=== PATIENT | female | born 1930 | race Caucasian/White ===

== ENCOUNTER 2018-05-01 22:59 | Observation (INO) | payer OTHER, BC ==
--- NOTE | 2018-05-01 23:27 | PDOC ---
History of Present Illness - General History Source: Patient Exam Limitations: No Limitations - History of Present Illness Initial Comments: 05/01/18 23:34 The patient is a 87 year old female, with a significant PMH of breast and colon cancer, who presents to the emergency department complaining of dysphagia that began an hour ago. The patient states she was able to eat dinner 8 PM and soon after dinner she noted she was not able to swallow her saliva. After this, she continuously started to expectorate her saliva as well clear foamy phlegm. She states that she had similar episodes in the past and has resolved on its own. The patient denies needing endoscopy removal of food bolus. She states that previous upper endoscopy has been normal. Denies chest pain, shortness of breath, headache and dizziness. Denies fever, chills, nausea, sore throat, vomit, diarrhea and constipation. Allergies: amoxicillin trihydrate, potassium clavulanate Past surgical history: None reported Social history: None reported PCP: None reported <hCristen Fyre - Last Filed: 05/01/18 23:57> <Loretta Patel - Last Filed: 05/04/18 04:07> - General Chief Complaint: Dysphagia Stated Complaint: HICCUPS, DIFFICULTY SWALLOWING AFTER EATING Time Seen by Provider: 05/01/18 23:17 Past History <Christen Frye - Last Filed: 05/01/18 23:57> - Past Medical History Cancer: Yes (BREAST,COLON) COPD: No - Immunization History Immunization Up to Date: Yes - Suicide/Smoking/Psychosocial Hx Smoking History: Never smoked Have you smoked in the past 12 months: No Number of Cigarettes Smoked Daily: 0 Information on smoking cessation initiated: No Hx Alcohol Use: No Drug/Substance Use Hx: No Substance Use Type: None <Loretta Patel - Last Filed: 05/04/18 04:07> - Past Medical History Allergies/Adverse Reactions: Allergies Allergy/AdvReac Type Severity Reaction Status Date / Time amoxicillin trihydrate Allergy Mild Verified 05/01/18 23:03 [From Augmentin] potassium clavulanate Allergy Mild Verified 05/01/18 23:03 [From Augmentin] Home Medications: Ambulatory Orders Pantoprazole Suspension [Protonix Packets For Oral Suspension -] 40 mg PO DAILY #30 packet 05/02/18 Review of Systems - Review of Systems Able to Perform ROS?: Yes Comments:: 05/01/18 23:35 GENERAL/CONSTITUTIONAL: No fever or chills. No weakness. HEAD, EYES, EARS, NOSE AND THROAT: No change in vision. No ear pain or discharge. No sore throat. CARDIOVASCULAR: No chest pain or shortness of breath. RESPIRATORY: +cough. No wheezing, or hemoptysis. GASTROINTESTINAL: No nausea, vomiting, diarrhea or constipation. GENITOURINARY: No dysuria, frequency, or change in urination. MUSCULOSKELETAL: No joint or muscle swelling or pain. No neck or back pain. SKIN: No rash NEUROLOGIC: No headache, vertigo, loss of consciousness, or change in strength/ sensation. ENDOCRINE: No increased thirst. No abnormal weight change. HEMATOLOGIC/LYMPHATIC: No anemia, easy bleeding, or history of blood clots. ALLERGIC/IMMUNOLOGIC: No hives or skin allergy. <Christen Frye - Bishop Filed: 05/01/18 23:57> *Physical Exam - Vital Signs Last Vital Signs Temp Pulse Resp BP Pulse Ox 112 H 20 130/82 96 05/01/18 23:15 05/01/18 23:15 05/01/18 23:15 05/01/18 23:15 - Physical Exam Comments: 05/01/18 23:36 GENERAL: Awake, alert, and fully oriented, in no acute distress HEAD: No signs of trauma EYES: PERRLA, EOMI, sclera anicteric, conjunctiva clear ENT: +Expectorant intermittent bolus of saliva. Auricles normal inspection, hearing grossly normal, nares patent. Moist mucosa NECK: Normal ROM, supple, no lymphadenopathy, JVD, or masses LUNGS: Moving air well. Able to speak full sentence. Breath sounds equal, clear to auscultation bilaterally. No wheezes, and no crackles HEART: Regular rate and rhythm, normal S1 and S2, no murmurs, rubs or gallops ABDOMEN: Soft, nontender, normoactive bowel sounds. No guarding, no rebound. No masses EXTREMITIES: Normal range of motion, no edema. No clubbing or cyanosis. No cords, erythema, or tenderness NEUROLOGICAL: Cranial nerves II through XII grossly intact. Normal speech, normal gait SKIN: Warm, Dry, normal turgor, no rashes or lesions noted. <Christen Frye - Last Filed: 05/01/18 23:57> - Vital Signs Last Vital Signs Temp Pulse Resp BP Pulse Ox 112 H 20 130/82 96 05/01/18 23:15 05/01/18 23:15 05/01/18 23:15 05/01/18 23:15 <Loretta Patel - Last Filed: 05/04/18 04:07> Moderate Sedation - Procedure Monitoring Vital Signs: Procedure Monitoring Vital Signs Temperature Pulse Rate 112 H 05/01/18 23:15 Respiratory Rate 20 05/01/18 23:15 Blood Pressure 130/82 05/01/18 23:15 O2 Sat by Pulse Oximetry (%) 96 05/01/18 23:15 <Christen Frye - Last Filed: 05/01/18 23:57> - Procedure Monitoring Vital Signs: Procedure Monitoring Vital Signs Temperature Pulse Rate 112 H 05/01/18 23:15 Respiratory Rate 20 05/01/18 23:15 Blood Pressure 130/82 05/01/18 23:15 O2 Sat by Pulse Oximetry (%) 96 05/01/18 23:15 <Loretta Patel - Last Filed: 05/04/18 04:07> ED Treatment Course - LABORATORY CBC & Chemistry Diagram: 05/02/18 07:15 05/02/18 07:15 <Loretta Patel - Last Filed: 05/04/18 04:07> Medical Decision Making - Medical Decision Making Documentation has been prepared under my direction and personally reviewed by me in its entirety. I attest that this documented accurately reflects all work, treatment, procedures and medical decision making performed by me. As noted above, this 87-year-old woman with a history of intermittent difficulty swallowing but no clear history of need for removal of food impaction presents with inability to swallow her saliva after eating a dinner of chicken and pasta at approximately 8 PM tonight. She also complained of discomfort in the right lower anterior neck area and sensation of a "bubble" in this area. The patient also was intermittently coughing clear phlegm. Remainder of his exam as noted. Patient received glucagon [address] Constantino was contacted and case was discussed with him after patient had no significant relief within 45 minutes after glucagon administration. He was contacted because OR team is not available overnight here and patient would need to be transferred to [facility] for urgent endoscopy. Meanwhile, the patient had total relief in her symptoms. CBC/chemistry profile/INR sent. Other than evidence of prerenal azotemia with BUN of 28 and creatinine of 0.7, labs were essentially normal with no evidence of electrolyte abnormality. CBC was within normal limits. INR is normal at 0.96. An oral challenge of a small amount of water was given to the patient. She then had a brief recurrence of throat/neck discomfort, inability to swallow and "bubble" sensation. Patient briefly needed to expectorate all swallowed material. After approximately 10 minutes, the patient again had resolution of symptoms Since patient has had apparent intermittent upper esophageal obstruction of unclear etiology, she requires admission to be NPO for possible endoscopy in the morning. Dr. Vaz contacted : He agrees to plan Portable chest x-ray reveals severe thoraco lumbar scoliosis (as seen in previous chest x-ray dated 01/16/11) without evidence of pulmonary infiltrate/ effusions/masses 12-lead electrocardiogram is performed: Sinus rhythm with occasional PACs at [address] or T-wave abnormalities. Intervals are normal Case discussed with Claudia Logan, [facility] hospitalist service. Patient will be admitted under observation status, Dr. Candelaria <Loretta Patel - Last Filed: 05/04/18 04:07> *DC/Admit/Observation/Transfer - Attestations Scribe Attestion: 05/01/18 23:37 Documentation prepared by Christen Frye, acting as resident medical officer for Loretta Patel MD. <Christen Frye - Last Filed: 05/01/18 23:57> - Discharge Dispostion Decision to Admit order: Yes <Loretta Patel - Last Filed: 05/04/18 04:07> Diagnosis at time of Disposition: Esophageal dysfunction - Discharge Dispostion Disposition: HOME Condition at time of disposition: Improved
[2018-05-01] MEDS ORDERED: GLUCAGON 1 MG KIT ONE (23:29)
[2018-05-01] MEDS ORDERED: GlUCAGON HUMAN RECOMBINANT 1 MG/VIAL IVPUSH ONE ×2 (23:29)
[2018-05-02 00:55] LABS: BASO % 0.9 % (0-2.0); EOS % 3.1 % (0-4.5); HEMATOCRIT 34.4 % (32.4-45.2); HEMOGLOBIN 11.9 GM/dL (10.7-15.3); INR 0.96 (0.83-1.09); LYMPH % 7.9 % (8-40); MCH 32.4 pg (25.7-33.7); MCHC 34.5 g/dl (32.0-36.0); MEAN CELL VOLUME 93.7 fl (80-96); MONO % 15.1 % (3.8-10.2); PLATELET COUNT 412 K/MM3 (134-434); PROTHROMBIN TIME (PATIENT) 11.3 SEC (9.7-13.0); RBC 3.67 M/mm3 (3.60-5.2); RDW 13.3 % (11.6-15.6); WHITE BLOOD COUNT 5.2 K/mm3 (4.0-10.0)
[2018-05-02 00:56] LABS: ANION GAP 5 MMOL/L (8-16); BLOOD UREA NITROGEN 28 mg/dL (7-18); CALCIUM 8.9 mg/dL (8.5-10.1); CHLORIDE 96 mmol/L (98-107); CO2 33 mmol/L (21-32); CREATININE 0.7 mg/dL (0.55-1.3); GLUCOSE,RANDOM 103 mg/dL (74-106); POTASSIUM 4.3 mmol/L (3.5-5.1); SODIUM 134 mmol/L (136-145)
[2018-05-02 00:57] LABS: ALBUMIN 3.3 g/dl (3.4-5.0); ALK PHOS 74 U/L (45-117); BILIRUBIN,TOTAL 0.4 mg/dL (0.2-1); SGOT/AST 17 U/L (15-37); SGPT/ALT 20 U/L (13-61)
[2018-05-02] MEDS ORDERED: DEXTROSE 5%-0.45% SALINE 1,000 ML IV SCH (04:00)
[2018-05-02 05:53] VITALS: BMI 16.4
[2018-05-02 08:16] LABS: EOS % 0.1 % (0-4.5); HEMATOCRIT 32.3 % (32.4-45.2); HEMOGLOBIN 10.4 GM/dl (10.7-15.3); LYMPH % 2.2 % (8-40); MCH 30.3 pg (25.7-33.7); MCHC 32.3 g/dl (32.0-36.0); MEAN CELL VOLUME 93.7 fl (80-96); MEAN PLT VOLUME 8.1 fl (7.5-11.1); NEUT % 89.7 % (42.8-82.8); PLATELET COUNT 384 K/MM3 (134-434); RBC 3.45 M/mm3 (3.60-5.2); RDW 12.6 % (11.6-15.6); WHITE BLOOD COUNT 10.6 K/mm3 (4.0-10.8)
[2018-05-02 08:28] LABS: ANION GAP 12 MMOL/L (8-16); BLOOD UREA NITROGEN 25 mg/dl (7-18); CALCIUM 8.8 mg/dl (8.5-10); CHLORIDE 96 mmol/L (98-107); CO2 26 mmol/L (21-32); CREATININE 0.6 mg/dl (0.55-1.3); POTASSIUM 4.4 mmol/L (3.5-5.1); SODIUM 134 mmol/L (136-145)
[2018-05-02 08:53] LABS: GLUCOSE,RANDOM 125 mg/dl (74-106)
--- NOTE | 2018-05-02 09:54 | EKG ---
Test Reason : Blood Pressure : / mmHG Vent. Rate : 097 BPM Atrial Rate : 097 BPM P-R Int : 136 ms QRS Dur : 076 ms QT Int : 380 ms P-R-T Axes : 081 071 067 degrees QTc Int : 482 ms SINUS RHYTHM WITH PREMATURE ATRIAL COMPLEXES POSSIBLE LEFT ATRIAL ENLARGEMENT BORDERLINE ECG NO PREVIOUS ECGS AVAILABLE Confirmed by BRAYDEN FARAH, JANETT ([id number]) on 05/02/2018 9:53:53 AM Referred By: DR HERNANDEZ Confirmed By:JANETT OWEN MD
--- NOTE | 2018-05-02 10:52 | PN ---
Progress Note (short form) - Note Progress Note: Patient seen and consult dictated. Upper endoscopy performed with report in chart. Findings c/w esophagitis and distal esophageal stricture (peptic). Biopsies taken. No remaining food impaction noted. Rec: soft diet PPI daily discharge home outpatient followup with repeat EGD ?dilatation in 3 weeks
--- NOTE | 2018-05-02 11:50 | HP ---
CHIEF COMPLAINT: Difficulty swallowing PCP: [facility] HISTORY OF PRESENT ILLNESS: The patient is a 87 year old female, with a significant PMH of breast and colon cancer, who presents to the emergency department complaining of dysphagia that began an hour ago. The patient states she ate a dinner of chicken and pasta, and soon thereafter felt discomfort in her throat, like a "bubble," and she was unable to swallow her saliva. Verdugo then started to continuously expectorate her saliva as well clear foamy phlegm. She states that she had similar episodes in the past which resolved on its own. Previous upper endoscopy was normal. Denies chest pain, shortness of breath; denies nausea, vomiting. ER course was notable for: (1) Glucagon IV 1mg x 1 Recent Travel: No PAST MEDICAL HISTORY: Breast cancer Colon cancer PAST SURGICAL HISTORY: Mastectomy Colon resection Social History: Smoking: no Alcohol: no Drugs: no Family History: Allergies amoxicillin trihydrate [From Augmentin] Allergy (Mild, Verified 05/01/18 23:03) potassium clavulanate [From Augmentin] Allergy (Mild, Verified 05/01/18 23:03) HOME MEDICATIONS: Home Medications Medication Instructions Recorded Aspirin 81 mg PO DAILY 02/08/13 REVIEW OF SYSTEMS CONSTITUTIONAL: Absent: fever, chills, diaphoresis, generalized weakness, malaise, loss of appetite, weight change HEENT: Absent: rhinorrhea, nasal congestion, throat pain, throat swelling, difficulty swallowing, mouth swelling, ear pain, eye pain, visual changes CARDIOVASCULAR: Absent: chest pain, syncope, palpitations, irregular heart rate, lightheadedness , peripheral edema RESPIRATORY: Absent: cough, shortness of breath, dyspnea with exertion, orthopnea, wheezing, stridor, hemoptysis GASTROINTESTINAL: +neck discomfort, difficulty swallowing, expectorating copious saliva Absent: abdominal pain, abdominal distension, nausea, vomiting, diarrhea, constipation, melena, hematochezia GENITOURINARY: Absent: dysuria, frequency, urgency, hesitancy, hematuria, flank pain, genital pain MUSCULOSKELETAL: Absent: myalgia, arthralgia, joint swelling, back pain, neck pain SKIN: Absent: rash, itching, pallor HEMATOLOGIC/IMMUNOLOGIC: Absent: easy bleeding, easy bruising, lymphadenopathy, frequent infections ENDOCRINE: Absent: unexplained weight gain, unexplained weight loss, heat intolerance, cold intolerance NEUROLOGIC: Absent: headache, focal weakness or paresthesias, dizziness, unsteady gait, seizure, mental status changes, bladder or bowel incontinence PSYCHIATRIC: Absent: anxiety, depression, suicidal or homicidal ideation, hallucinations. PHYSICAL EXAMINATION Vital Signs - 24 hr 05/01/18 05/02/18 05/02/18 23:15 02:30 03:39 Temperature Pulse Rate 112 H Pulse Rate [ 100 H Left] Respiratory 20 20 20 Rate Blood Pressure 130/82 Blood Pressure 118/57 L [Left] O2 Sat by Pulse 96 96 96 Oximetry (%) 05/02/18 05/02/18 05/02/18 03:57 06:01 08:36 Temperature 97.6 F Pulse Rate 103 H Pulse Rate [ Left] Respiratory 20 20 Rate Blood Pressure 115/64 Blood Pressure [Left] O2 Sat by Pulse 96 91 L 92 L Oximetry (%) GENERAL: Awake, alert, and fully oriented, in no acute distress. HEAD: Normal with no signs of trauma. EYES: Pupils equal, round and reactive to light, extraocular movements intact, sclera anicteric, conjunctiva clear. No lid lag. EARS, NOSE, THROAT: Ears normal, nares patent, oropharynx clear without exudates. Moist mucous membranes. NECK: Normal range of motion, supple without lymphadenopathy, JVD, or masses. LUNGS: Breath sounds equal, clear to auscultation bilaterally. No wheezes, and no crackles. No accessory muscle use. HEART: Regular rate and rhythm, S1 and S2 without murmur, rub or gallop. ABDOMEN: Soft, nontender, not distended UPPER EXTREMITIES: 2+ pulses, warm, well-perfused. No cyanosis. No clubbing. No peripheral edema. LOWER EXTREMITIES: 2+ pulses, warm, well-perfused. No calf tenderness. No peripheral edema. NEUROLOGICAL: Cranial nerves II-XII intact. Normal speech. Laboratory Results - last 24 hr 05/01/18 05/01/18 05/01/18 23:30 23:30 23:30 WBC 5.2 RBC 3.67 Hgb 11.9 Hct 34.4 MCV 93.7 MCH 32.4 MCHC 34.5 RDW 13.3 Plt Count 412 MPV 8.0 Absolute Neuts (auto) 3.8 Neutrophils % 73.0 Lymphocytes % 7.9 L Monocytes % 15.1 H Eosinophils % 3.1 Basophils % 0.9 Nucleated RBC % 0 PT with INR 11.30 INR 0.96 Sodium 134 L Potassium 4.3 Chloride 96 L Carbon Dioxide 33 H Anion Gap 5 L BUN 28 H Creatinine 0.7 Creat Clearance w eGFR > 60 Random Glucose 103 Calcium 8.9 Total Bilirubin 0.4 AST 17 ALT 20 Alkaline Phosphatase 74 Total Protein 7.0 Albumin 3.3 L 05/02/18 05/02/18 07:15 07:15 WBC 10.6 RBC 3.45 L Hgb 10.4 L Hct 32.3 L MCV 93.7 MCH 30.3 MCHC 32.3 RDW 12.6 Plt Count 384 MPV 8.1 Absolute Neuts (auto) 9.6 Neutrophils % 89.7 H Lymphocytes % 2.2 L Monocytes % 8.0 Eosinophils % 0.1 Basophils % 0.0 Nucleated RBC % PT with INR INR Sodium 134 L Potassium 4.4 Chloride 96 L Carbon Dioxide 26 Anion Gap 12 BUN 25 H Creatinine 0.6 Creat Clearance w eGFR > 60 Random Glucose 125 H Calcium 8.8 Total Bilirubin AST ALT Alkaline Phosphatase Total Protein Albumin ASSESSMENT/PLAN: The patient is a 87 year old female, with a significant PMH of breast and colon cancer, placed on observation for dysphagia. Dysphagia --had EGD this morning, awaiting results --IV fluids --NPO Dispo: continues to require observation. Full code. Visit type - Emergency Visit Emergency Visit: Yes ED Registration Date: 05/02/18 Care time: The patient presented to the Emergency Department on the above date and was hospitalized for further evaluation of their emergent condition. - New Patient This patient is new to me today: Yes Date on this admission: 05/03/18 - Critical Care Critical Care patient: No
--- NOTE | 2018-05-02 13:35 | DS ---
Physical Exam: SUBJECTIVE: Patient seen and examined. Feeling better following EGD. Throat discomfort is gone, is tolerating a soft diet. OBJECTIVE: Vital Signs Period Temp Pulse Resp BP Sys/Luis Pulse Ox Last 24 Hr 97.6 F-98.4 F 99-112 20-20 100-130/46-82 91-96 PHYSICAL EXAM GENERAL: The patient is awake, alert, and fully oriented, in no acute distress. HEAD: Normal with no signs of trauma. EYES: PERRL, extraocular movements intact, sclera anicteric, conjunctiva clear. ENT: Ears normal, nares patent, oropharynx clear without exudates, moist mucous membranes. NECK: Trachea midline, full range of motion, supple. LUNGS: Breath sounds equal, clear to auscultation bilaterally, no wheezes, no crackles, no accessory muscle use. HEART: Regular rate and rhythm, S1, S2 without murmur, rub or gallop. ABDOMEN: Soft, nontender, nondistended, normoactive bowel sounds, no guarding, no rebound, no hepatosplenomegaly, no masses. EXTREMITIES: 2+ pulses, warm, well-perfused, no edema. NEUROLOGICAL: Cranial nerves II through XII grossly intact. Normal speech, gait not observed. LABS Laboratory Results - last 24 hr 05/01/18 05/01/18 05/01/18 23:30 23:30 23:30 WBC 5.2 RBC 3.67 Hgb 11.9 Hct 34.4 MCV 93.7 MCH 32.4 MCHC 34.5 RDW 13.3 Plt Count 412 MPV 8.0 Absolute Neuts (auto) 3.8 Neutrophils % 73.0 Lymphocytes % 7.9 L Monocytes % 15.1 H Eosinophils % 3.1 Basophils % 0.9 Nucleated RBC % 0 PT with INR 11.30 INR 0.96 Sodium 134 L Potassium 4.3 Chloride 96 L Carbon Dioxide 33 H Anion Gap 5 L BUN 28 H Creatinine 0.7 Creat Clearance w eGFR > 60 Random Glucose 103 Calcium 8.9 Total Bilirubin 0.4 AST 17 ALT 20 Alkaline Phosphatase 74 Total Protein 7.0 Albumin 3.3 L 05/02/18 05/02/18 07:15 07:15 WBC 10.6 RBC 3.45 L Hgb 10.4 L Hct 32.3 L MCV 93.7 MCH 30.3 MCHC 32.3 RDW 12.6 Plt Count 384 MPV 8.1 Absolute Neuts (auto) 9.6 Neutrophils % 89.7 H Lymphocytes % 2.2 L Monocytes % 8.0 Eosinophils % 0.1 Basophils % 0.0 Nucleated RBC % PT with INR INR Sodium 134 L Potassium 4.4 Chloride 96 L Carbon Dioxide 26 Anion Gap 12 BUN 25 H Creatinine 0.6 Creat Clearance w eGFR > 60 Random Glucose 125 H Calcium 8.8 Total Bilirubin AST ALT Alkaline Phosphatase Total Protein Albumin HOSPITAL COURSE: Date of Admission:05/02/18 Date of Discharge: 05/02/18 Pre hospital visit The patient is a 87 year old female, with a significant PMH of breast and colon cancer, who presents to the emergency department complaining of dysphagia that began an hour ago. The patient states she ate a dinner of chicken and pasta, and soon thereafter felt discomfort in her throat, like a "bubble," and she was unable to swallow her saliva. Verdugo then started to continuously expectorate her saliva as well clear foamy phlegm. She states that she had similar episodes in the past which resolved on its own. Previous upper endoscopy was normal. Denies chest pain, shortness of breath; denies nausea, vomiting. ER course (1) Glucagon IV 1mg x 1 Subsequent hospital course The patient is a 87 year old female, with a significant PMH of breast and colon cancer, placed on observation for dysphagia. Dysphagia Esophagitis Distal esophageal stricture --EGD this morning showed esophagitis and a distal stricture, no food impaction observed --continue on soft diet, daily PPI --follow up with Dr. Vaz in three weeks for repeat EGD and possible dilitation Minutes to complete discharge: 35 Discharge Summary Reason For Visit: Esophageal Obstruction Current Active Problems Esophageal dysfunction (Acute) Condition: Improved - Instructions Diet, Activity, Other Instructions: You have been diagnosed with esophagitis and an esophageal stricture. You should follow up with Dr. Vaz in three weeks for a further procedure. In the meantime, eat soft or pureed foods. STOP taking aspirin. START taking pantoprazole. A prescription has been sent to your pharmacy. Return to the emergency department for any new or worsening symptoms. Referrals: Nima Vaz MD [Staff Physician] - Onur Hyde [Non Staff, Medical] - Disposition: HOME - Home Medications Comprehensive Discharge Medication List: Ambulatory Orders Aspirin 81 mg PO DAILY 02/08/13 This patient is new to me today: No Emergency Visit: Yes ED Registration Date: 05/02/18 Care time: The patient presented to the Emergency Department on the above date and was hospitalized for further evaluation of their emergent condition. Critical Care patient: No - Discharge Referral Referred to [facility].: No
[2018-05-02 14:34] VITALS: BP 103/45; PULSE 110; TEMP 98.7
--- NOTE | 2018-05-02 21:51 | CONS ---
DATE OF CONSULTATION: 05/02/2018 Patient is an 87-year-old female admitted via the emergency room with dysphagia to solid food. The patient has a history of breast cancer and colon cancer in the past. She states she has had a history of intermittent dysphagia to solids previous over the past several years. She has had several episodes of dysphagia. Most of these episodes resolve on their own. She believes she had an upper endoscopy and possibly a barium study in the past with her last evaluation over 4 years ago. She states that she went to the emergency room after eating a meal with some chicken and pasta and was unable to swallow her saliva. In the emergency room, she was monitored, and her swallowing transiently improved. However, when she was given a challenge to drink some liquids, she again had some vomiting and spitting up. The patient denies any recent change in her appetite and denies any odynophagia. She does take a baby aspirin daily. PHYSICAL EXAMINATION: General: She is a well-developed, thin female with pink conjunctiva. Abdomen: Soft. Normoactive bowel sounds and no tenderness. She has healed surgical scars. LABORATORY TESTS: Include a white count of 10.6, hemoglobin 10.4, hematocrit 32.3, and a platelet count of 384,000. Her chemistry panel is unremarkable as are her liver chemistries. Her INR is 0.96. Patient with acute onset of dysphagia after eating a solid meal, currently feels better and is able to handle secretions, but still had some difficulty handling some liquids after her initial clinical improvement. May still have a food bolus in the esophagus which is "ball valving" and/or an esophageal stricture. The possibility of esophageal dysmotility in an 87-year-old female is also considered, especially in view of her past medical history. We will arrange for an upper endoscopy this morning to rule out any food impaction with recommendations to follow. MAXWELL CAST M.D. NIHARIKA/[id number]
--- NOTE | 2018-05-03 17:43 | PATH ---
Surgical Pathology Report Patient Name: [facility] Med. Rec. #: [id number] /Age/Gender: 1930 (Age: 87) / F Account: [id number] Location: [facility] MED-SURG Taken: 05/02/2018 Received: 05/02/2018 Reported: 05/03/2018 Physicians: Nima Vaz M.D. PHYSICIAN EMERGENCY DEPT Specimen(s) Received A: BX ANTRUM B: BX GASTRIC BODY C: BX GE JUNCTION D: BX MID-ESOPHAGUS Clinical History Esophageal obstruction Postoperative diagnosis: Atrophic changes distal gastric body, gastritis, hiatal hernia, esophagitis, possible stricture Final Diagnosis A. ANTRUM, BIOPSY: GASTRIC MUCOSA WITH REACTIVE GASTROPATHY. IMMUNOSTAIN FOR H. PYLORI IS NEGATIVE. NEGATIVE FOR INTESTINAL METAPLASIA. B. GASTRIC BODY, BIOPSY GASTRIC MUCOSA WITH MILD CHRONIC GASTRITIS. IMMUNOSTAIN FOR H. PYLORI IS NEGATIVE. NEGATIVE FOR INTESTINAL METAPLASIA. C. GE JUNCTION, BIOPSY: SQUAMOUS AND COLUMNAR (GASTRIC) MUCOSA SHOWING FOCAL ACUTE INFLAMMATION WITHIN THE EPITHELIUM, AND ACUTE INFLAMMATORY EXUDATE, SUGGESTIVE OF ULCER. NEGATIVE FOR INTESTINAL METAPLASIA. D. MID ESOPHAGUS, BIOPSY: SQUAMOUS EPITHELIUM WITH CHANGES CONSISTENT WITH REFLUX ESOPHAGITIS. NEGATIVE FOR INTESTINAL METAPLASIA. NO HISTOLOGIC EVIDENCE OF EOSINOPHILIC ESOPHAGITIS. Electronically Signed Jolly Dorman M.D. Gross Description A. Received in formalin, labeled "antrum" is a her, irregular portion of soft tissue measuring 0.3 cm. in greatest dimension. The specimen is submitted in toto in one cassette. B. Received in formalin, labeled "gastric body" is a her, irregular portion of soft tissue measuring 0.5 cm. in greatest dimension. The specimen is submitted in toto in one cassette. C. Received in formalin, labeled "GE junction" are 3 her, irregular portions of soft tissue ranging from 0.1-0.2 cm. in greatest dimension. The specimens are submitted in toto in one cassette. D. Received in formalin, labeled "mid esophagus" is a her, irregular portion of soft tissue measuring 0.3 cm. in greatest dimension. The specimen is submitted in toto in one cassette. /05/02/2018 saudi05/02/2018
== END 2018-05-02 15:15 | disposition home or self-care (01) ==
LOC: FER 22:59 → FM/S 05-02 03:39
PROVIDERS: ADMIT Internal Medicine; ATTEND Nurse Practitioner Acute Care
PROC: 0DB28ZX Excision of Middle Esophagus, Via Natural or Artificial Opening Endoscopic, Diagnostic (ICD-10-PCS; 2018-05-02)
PROC: 0DB48ZX Excision of Esophagogastric Junction, Via Natural or Artificial Opening Endoscopic, Diagnostic (ICD-10-PCS; 2018-05-02)
PROC: 3E033GC Introduction of Other Therapeutic Substance into Peripheral Vein, Percutaneous Approach (ICD-10-PCS; 2018-05-02)
PROC: 0DB68ZX Excision of Stomach, Via Natural or Artificial Opening Endoscopic, Diagnostic (ICD-10-PCS; principal; 2018-05-02 10:36)
DX: K22.2 Esophageal obstruction (principal); K44.9 Diaphragmatic hernia without obstruction or gangrene; K22.4 Dyskinesia of esophagus; K29.50 Unspecified chronic gastritis without bleeding; K21.0 Gastro-esophageal reflux disease with esophagitis; K31.9 Disease of stomach and duodenum, unspecified; Z85.038 Personal history of other malignant neoplasm of large intestine; Z85.3 Personal history of malignant neoplasm of breast
CPT/HCPCS: 36415; 71045-TC-FY; 80048; 80053; 85025; 85610; 88305-TC; 88342-TC; 93005; 96374; 99284-25; G0378

== ENCOUNTER 2020-05-25 19:44 | Inpatient (IN) | payer OTHER, BC ==
[2020-05-25 20:44] LABS: BASO % 0.1 % (0-2.0); EOS % 0.1 % (0-4.5); HEMOGLOBIN 9.7 GM/dl (10.7-15.3); LYMPH % 2.8 % (8-40); MCH 29.3 pg (25.7-33.7); MCHC 32.4 g/dl (32.0-36.0); MEAN CELL VOLUME 90.4 fl (80-96); MEAN PLT VOLUME 8.3 fl (7.5-11.1); MONO % 5.6 % (3.8-10.2); NEUT % 91.4 % (42.8-82.8); PLATELET COUNT 259 K/MM3 (134-434); RBC 3.32 M/mm3 (3.60-5.2); RDW 14.5 % (11.6-15.6); WHITE BLOOD COUNT 6.1 K/mm3 (4.0-10.8)
[2020-05-25 21:04] LABS: ALBUMIN 3.1 g/dl (3.4-5.0); BILIRUBIN,TOTAL 0.7 mg/dl (0.2-1); CALCIUM 8.6 mg/dl (8.5-10); CREATININE 0.6 mg/dl (0.55-1.3); POTASSIUM 5.1 mmol/L (3.5-5.1)
[2020-05-25] MEDS ORDERED: SODIUM CHLORIDE 0.9% 500 ML INFUS.BAG IV ONE (21:12)
[2020-05-25] MEDS ORDERED: ASPIRIN 81 MG CHEWABLE TABLETS PO ONE (21:37)
[2020-05-25] MEDS ORDERED: ASPIRIN 81 MG CHEWABLE TABLETS ONE (21:44)
[2020-05-25 22:44] LABS: EPITHELIAL CELLS MODERATE /hpf
[2020-05-26 02:23] LABS: INR 1.01 (0.83-1.09); PROTHROMBIN TIME (PATIENT) 12.2 SEC (9.7-13.0)
[2020-05-26] MEDS: ENOXAPARIN NA (PORCINE) 40 MG/0.4 ML DISP.SYRIN SQ SCH ×2 (03:32→10:37)
[2020-05-26 08:12] LABS: BASO % 0.7 % (0-2.0); EOS % 0.2 % (0-4.5); HEMATOCRIT 27.9 % (32.4-45.2); LYMPH % 7.7 % (8-40); MCH 28.9 pg (25.7-33.7); MCHC 32.3 g/dl (32.0-36.0); MEAN CELL VOLUME 89.5 fl (80-96); MEAN PLT VOLUME 8.6 fl (7.5-11.1); MONO % 14.9 % (3.8-10.2); NEUT % 76.5 % (42.8-82.8); PLATELET COUNT 256 K/MM3 (134-434); RBC 3.12 M/mm3 (3.60-5.2); RDW 14.2 % (11.6-15.6); WHITE BLOOD COUNT 4.8 K/mm3 (4.0-10.8)
[2020-05-26 08:31] LABS: ALBUMIN 2.7 g/dl (3.4-5.0); BILIRUBIN,TOTAL 0.5 mg/dl (0.2-1); CALCIUM 8.7 mg/dl (8.5-10); CREATININE 0.5 mg/dl (0.55-1.3); MAGNESIUM 1.9 mg/dL (1.8-2.4); PHOSPHOROUS 3.9 mg/dl (2.5-4.9); POTASSIUM 4.7 mmol/L (3.5-5.1); TOT PROT 5.1 g/dl (6.4-8.2)
[2020-05-26] MEDS: ASPIRIN 81 MG CHEWABLE TABLETS PO SCH (10:37)
[2020-05-27 07:54] LABS: BASO % 0.8 % (0-2.0); EOS % 0.1 % (0-4.5); HEMATOCRIT 29.3 % (32.4-45.2); HEMOGLOBIN 9.3 GM/dl (10.7-15.3); LYMPH % 10.5 % (8-40); MCH 28.7 pg (25.7-33.7); MCHC 31.8 g/dl (32.0-36.0); MEAN CELL VOLUME 90.2 fl (80-96); MEAN PLT VOLUME 8.2 fl (7.5-11.1); MONO % 15.3 % (3.8-10.2); NEUT % 73.3 % (42.8-82.8); PLATELET COUNT 266 K/MM3 (134-434); RBC 3.25 M/mm3 (3.60-5.2); RDW 14.1 % (11.6-15.6); WHITE BLOOD COUNT 3.7 K/mm3 (4.0-10.8)
[2020-05-27 08:01] LABS: ALBUMIN 2.7 g/dl (3.4-5.0); BILIRUBIN,TOTAL 0.5 mg/dl (0.2-1); CALCIUM 8.6 mg/dl (8.5-10); CREATININE 0.5 mg/dl (0.55-1.3); MAGNESIUM 1.8 mg/dL (1.8-2.4); TOT PROT 5.5 g/dl (6.4-8.2)
[2020-05-27 09:19] LABS: ALBUMIN 2.8 g/dl (3.4-5.0); BASO % 0.4 % (0-2.0); BILIRUBIN,TOTAL 0.5 mg/dl (0.2-1); CALCIUM 8.9 mg/dl (8.5-10); CREATININE 0.6 mg/dl (0.55-1.3); EOS % 0.2 % (0-4.5); HEMOGLOBIN 9.7 GM/dl (10.7-15.3); LYMPH % 8.1 % (8-40); MAGNESIUM 1.9 mg/dL (1.8-2.4); MCH 29.1 pg (25.7-33.7); MCHC 32.3 g/dl (32.0-36.0); MEAN CELL VOLUME 90.1 fl (80-96); MEAN PLT VOLUME 8.2 fl (7.5-11.1); MONO % 13.7 % (3.8-10.2); NEUT % 77.6 % (42.8-82.8); PHOSPHOROUS 3.2 mg/dl (2.5-4.9); PLATELET COUNT 276 K/MM3 (134-434); POTASSIUM 4.9 mmol/L (3.5-5.1); RBC 3.33 M/mm3 (3.60-5.2); RDW 14.1 % (11.6-15.6); TOT PROT 5.8 g/dl (6.4-8.2); WHITE BLOOD COUNT 4.1 K/mm3 (4.0-10.8)
[2020-05-27] MEDS: metoPROLOL SUCCINATE 25 MG TAB.SR.24H (FP) PO SCH (10:53)
[2020-05-27] MEDS: ASPIRIN 81 MG CHEWABLE TABLETS PO SCH (10:53)
[2020-05-27] MEDS: FUROSEMIDE 40 MG/4 ML INJECTABLE VIAL IVPUSH SCH (10:54)
[2020-05-27] MEDS: ENOXAPARIN NA (PORCINE) 40 MG/0.4 ML DISP.SYRIN SQ SCH (10:54)
[2020-05-28 08:12] LABS: BASO % 0.4 % (0-2.0); EOS % 0.1 % (0-4.5); HEMATOCRIT 30.6 % (32.4-45.2); HEMOGLOBIN 9.7 GM/dl (10.7-15.3); LYMPH % 7.2 % (8-40); MCH 29.2 pg (25.7-33.7); MCHC 31.9 g/dl (32.0-36.0); MEAN CELL VOLUME 91.6 fl (80-96); MEAN PLT VOLUME 8.2 fl (7.5-11.1); MONO % 11.2 % (3.8-10.2); NEUT % 81.1 % (42.8-82.8); PLATELET COUNT 304 K/MM3 (134-434); RBC 3.34 M/mm3 (3.60-5.2); RDW 14.4 % (11.6-15.6); WHITE BLOOD COUNT 4.8 K/mm3 (4.0-10.8)
[2020-05-28 08:13] LABS: INR 1.01 (0.82-1.09); PROTHROMBIN TIME (PATIENT) 11.3 SEC (10.2-13.0)
[2020-05-28 08:18] LABS: ALBUMIN 2.8 g/dl (3.4-5.0); BILIRUBIN,TOTAL 0.6 mg/dl (0.2-1); CALCIUM 8.8 mg/dl (8.5-10); CREATININE 0.6 mg/dl (0.55-1.3); MAGNESIUM 1.9 mg/dL (1.8-2.4); POTASSIUM 5.3 mmol/L (3.5-5.1); TOT PROT 5.7 g/dl (6.4-8.2)
[2020-05-28 09:44] LABS: N-TERMINAL BNP 4809.1 pg/ml (5-450)
[2020-05-28] MEDS: FUROSEMIDE 40 MG/4 ML INJECTABLE VIAL IVPUSH SCH (10:11)
[2020-05-28] MEDS: ASPIRIN 81 MG CHEWABLE TABLETS PO SCH (10:11)
[2020-05-28] MEDS: metoPROLOL SUCCINATE 25 MG TAB.SR.24H (FP) PO SCH (10:11)
[2020-05-28] MEDS: ENOXAPARIN NA (PORCINE) 40 MG/0.4 ML DISP.SYRIN SQ SCH ×2 (10:13→21:06)
[2020-05-28] MEDS ORDERED: METOPROLOL TARTRATE 5 MG/5 ML VIAL IVPUSH ONE (15:23)
[2020-05-28] MEDS ORDERED: DOPAMINE 400 MG/D5W - 400,000 MCG/250 ML INFUS.BAG IVPB ONE (16:28)
[2020-05-28] MEDS ORDERED: RAPID SEQUENCE INTUBATION KIT NR ONE (16:31)
[2020-05-28] MEDS: VASOPRESSIN 40 UNITS in SODIUM CHLORIDE 98 ML IVPB SCH (16:40)
[2020-05-28] MEDS ORDERED: FENTANYL NS IVPB 500 MCG/100 ML BAG IVPB ONE (16:59)
[2020-05-28] MEDS: FENTANYL NS IVPB 500 MCG/100 ML BAG IVPB SCH (17:00)
[2020-05-28] MEDS ORDERED: VASOPRESSIN 20 UNITS/ML VIAL IV ONE (17:13)
[2020-05-28] MEDS ORDERED: PHENYLEPHRINE HCL 10 MG/1 ML SINGLE DOSE VIAL ONE ×2 (17:25→17:27)
[2020-05-28] MEDS ORDERED: ROCURONIUM BROMIDE 50 MG/5 ML VIAL IVPUSH ONE (18:34)
[2020-05-28] MEDS ORDERED: ETOMIDATE 40 MG/20 ML VIAL IVPUSH ONE (18:34)
[2020-05-28] MEDS ORDERED: ATROPINE SULFATE 1 MG/10 ML DISP.SYRIN IVPUSH ONE (18:39)
[2020-05-28] MEDS ORDERED: DOPAMINE 400 MG/D5W - 400,000 MCG/250 ML INFUS.BAG IVPB SCH (18:45)
[2020-05-28] MEDS ORDERED: PHENYLEPHRINE NS PREMIX 50,000 MCG/500 ML BAG CVP SCH (18:45)
[2020-05-28] MEDS: DEXMEDETOMIDINE IN 0.9 % NACL 400 MCG/100 ML VIAL IVPB SCH (20:30)
[2020-05-28] MEDS ORDERED: METOPROLOL TARTRATE 25 MG TABLET (FP) PO SCH (22:00)
[2020-05-29] MEDS ORDERED: LORazepam 2 MG/ML SDV VIAL IVPUSH ONE ×2 (03:07→04:00)
[2020-05-29] MEDS ORDERED: FAMOTIDINE 20 MG/50 ML IVPB 20 MG/50 ML MG IVPB ONE (05:52)
[2020-05-29 07:24] LABS: HEMATOCRIT 28.1 % (32.4-45.2); HEMOGLOBIN 9.2 GM/dL (10.7-15.3); MCHC 32.6 g/dl (32.0-36.0); MEAN CELL VOLUME 88.8 fl (80-96); MEAN PLT VOLUME 8.4 fl (7.5-11.1); PLATELET COUNT 258 K/MM3 (134-434); RBC 3.17 M/mm3 (3.60-5.2); RDW 14.9 % (11.6-15.6); WHITE BLOOD COUNT 8.7 K/mm3 (4.0-10.0)
[2020-05-29 08:03] LABS: ALBUMIN 2.5 g/dl (3.4-5.0); BLOOD UREA NITROGEN 34.1 mg/dL (7-18); CALCIUM 8.5 mg/dL (8.5-10.1); MAGNESIUM 1.8 mg/dL (1.8-2.4)
[2020-05-29 08:06] LABS: CREATININE 0.7 mg/dL (0.55-1.3)
[2020-05-29 08:07] LABS: PHOSPHOROUS 3.5 mg/dL (2.5-4.9)
[2020-05-29 08:08] LABS: BILIRUBIN,TOTAL 0.7 mg/dL (0.2-1); TOT PROT 5.4 g/dl (6.4-8.2)
[2020-05-29] MEDS ORDERED: MAGNESIUM SULF 50% (8.12 MEQ/2 ML-1 GM VIAL) IVPB ONE (08:19)
[2020-05-29] MEDS: ENOXAPARIN NA (PORCINE) 40 MG/0.4 ML DISP.SYRIN SQ SCH ×2 (09:13→21:35)
[2020-05-29] MEDS: ASPIRIN 81 MG CHEWABLE TABLETS PO SCH (09:14)
[2020-05-29] MEDS ORDERED: SODIUM CHLORIDE 500 ML IV STA (16:44)
[2020-05-29] MEDS: NOREPINEPHRINE BITARTRATE 8,000 MCG/500 ML BAG IVPB SCH (18:42)
[2020-05-29] MEDS: VASOPRESSIN 40 UNITS in SODIUM CHLORIDE 98 ML IVPB SCH ×2 (19:00→19:13)
[2020-05-29] MEDS: FENTANYL NS IVPB 500 MCG/100 ML BAG IVPB SCH (19:12)
[2020-05-30] MEDS ORDERED: SODIUM CHLORIDE 500 ML IV STA (02:47)
[2020-05-30] MEDS ORDERED: ACETAMINOPHEN 1000 MG/100 ML VIAL (NON FORMULARY) IVPB PRN ×2 (02:51→06:11)
[2020-05-30] MEDS ORDERED: MIDAZOLAM 100 MG/100 ML MG IVPB ONE (03:28)
[2020-05-30] MEDS ORDERED: MIDAZOLAM 100 MG in SODIUM CHLORIDE 100 ML IVPB SCH (03:30)
[2020-05-30] MEDS ORDERED: MIDAZOLAM 100 MG/100 ML MG IVPB SCH (03:57)
[2020-05-30 07:23] LABS: HEMOGLOBIN 9.1 GM/dL (10.7-15.3); MCH 29.5 pg (25.7-33.7); MCHC 33.6 g/dl (32.0-36.0); MEAN CELL VOLUME 87.7 fl (80-96); MEAN PLT VOLUME 8.9 fl (7.5-11.1); PLATELET COUNT 302 K/MM3 (134-434); RBC 3.07 M/mm3 (3.60-5.2); RDW 14.9 % (11.6-15.6)
[2020-05-30 08:01] LABS: CALCIUM 8.4 mg/dL (8.5-10.1)
[2020-05-30 08:02] LABS: ALBUMIN 2.5 g/dl (3.4-5.0); BLOOD UREA NITROGEN 30.5 mg/dL (7-18); MAGNESIUM 2.3 mg/dL (1.8-2.4)
[2020-05-30 08:05] LABS: CREATININE 0.6 mg/dL (0.55-1.3); PHOSPHOROUS 3.6 mg/dL (2.5-4.9)
[2020-05-30 08:07] LABS: BILIRUBIN,TOTAL 0.9 mg/dL (0.2-1); TOT PROT 5.3 g/dl (6.4-8.2)
[2020-05-30] MEDS: ASPIRIN 81 MG CHEWABLE TABLETS PO SCH (10:00)
[2020-05-30] MEDS: ENOXAPARIN NA (PORCINE) 40 MG/0.4 ML DISP.SYRIN SQ SCH ×2 (10:00→22:46)
[2020-05-30] MEDS: FAMOTIDINE 20 MG/50 ML IVPB 20 MG/50 ML MG IVPB SCH (10:00)
[2020-05-30] MEDS: VASOPRESSIN 40 UNITS in SODIUM CHLORIDE 98 ML IVPB SCH (18:40)
[2020-05-30] MEDS: NOREPINEPHRINE BITARTRATE 8,000 MCG/500 ML BAG IVPB SCH (18:56)
[2020-05-30] MEDS: FENTANYL NS IVPB 500 MCG/100 ML BAG IVPB SCH ×2 (18:57→22:10)
[2020-05-31] MEDS ORDERED: MIDAZOLAM 100 MG/100 ML MG IVPB SCH (04:00)
[2020-05-31 07:02] LABS: HEMATOCRIT 25.9 % (32.4-45.2); HEMOGLOBIN 8.6 GM/dL (10.7-15.3); MCH 29.3 pg (25.7-33.7); MCHC 33.3 g/dl (32.0-36.0); MEAN CELL VOLUME 87.9 fl (80-96); MEAN PLT VOLUME 8.8 fl (7.5-11.1); PLATELET COUNT 232 K/MM3 (134-434); RBC 2.94 M/mm3 (3.60-5.2); RDW 15.3 % (11.6-15.6); WHITE BLOOD COUNT 6.5 K/mm3 (4.0-10.0)
[2020-05-31 07:32] LABS: POTASSIUM 3.4 mmol/L (3.5-5.1)
[2020-05-31 07:35] LABS: ALBUMIN 2.3 g/dl (3.4-5.0); BLOOD UREA NITROGEN 29.2 mg/dL (7-18); CALCIUM 8.2 mg/dL (8.5-10.1)
[2020-05-31 07:38] LABS: CREATININE 0.4 mg/dL (0.55-1.3); PHOSPHOROUS 3.1 mg/dL (2.5-4.9)
[2020-05-31 07:39] LABS: BILIRUBIN,TOTAL 0.8 mg/dL (0.2-1); TOT PROT 5.1 g/dl (6.4-8.2)
[2020-05-31] MEDS ORDERED: PT OWN MED DRAWER 7, Y5N ONE (09:00)
[2020-05-31] MEDS: FAMOTIDINE 20 MG/50 ML IVPB 20 MG/50 ML MG IVPB SCH (09:02)
[2020-05-31] MEDS: KCL 10 MEQ IVPB 10 MEQ/100 ML INFUS.BAG IVPB SCH ×3 (09:02→11:30)
[2020-05-31] MEDS: ASPIRIN 81 MG CHEWABLE TABLETS PO SCH (09:02)
[2020-05-31] MEDS: ENOXAPARIN NA (PORCINE) 40 MG/0.4 ML DISP.SYRIN SQ SCH ×2 (09:05→21:10)
[2020-05-31] MEDS ORDERED: DOCUSATE SODIUM 100 MG CAPSULE (FP) PO ONE (11:01)
[2020-05-31] MEDS ORDERED: DOCUSATE NA 100 MG/10 ML UNIT-DOSE CUPS PO ONE (11:51)
[2020-05-31] MEDS: NOREPINEPHRINE BITARTRATE 8,000 MCG/500 ML BAG IVPB SCH (19:27)
[2020-05-31] MEDS: FENTANYL NS IVPB 500 MCG/100 ML BAG IVPB SCH (22:00)
[2020-06-01 06:49] LABS: HEMATOCRIT 29.4 % (32.4-45.2); HEMOGLOBIN 9.8 GM/dL (10.7-15.3); MCH 29.5 pg (25.7-33.7); MCHC 33.4 g/dl (32.0-36.0); MEAN CELL VOLUME 88.3 fl (80-96); MEAN PLT VOLUME 8.7 fl (7.5-11.1); PLATELET COUNT 288 K/MM3 (134-434); RBC 3.33 M/mm3 (3.60-5.2); RDW 15.1 % (11.6-15.6); WHITE BLOOD COUNT 10.5 K/mm3 (4.0-10.0)
[2020-06-01 07:08] LABS: POTASSIUM 4.5 mmol/L (3.5-5.1)
[2020-06-01 07:11] LABS: ALBUMIN 2.3 g/dl (3.4-5.0)
[2020-06-01 07:12] LABS: BLOOD UREA NITROGEN 19.4 mg/dL (7-18)
[2020-06-01 07:15] LABS: CREATININE 0.5 mg/dL (0.55-1.3); PHOSPHOROUS 2.2 mg/dL (2.5-4.9)
[2020-06-01 07:16] LABS: BILIRUBIN,TOTAL 0.6 mg/dL (0.2-1); TOT PROT 5.3 g/dl (6.4-8.2)
[2020-06-01] MEDS ORDERED: PT OWN MED DRAWER 7, Y5N ONE ×2 (09:33→18:40)
[2020-06-01] MEDS: ENOXAPARIN NA (PORCINE) 40 MG/0.4 ML DISP.SYRIN SQ SCH ×2 (09:39→21:27)
[2020-06-01] MEDS: FAMOTIDINE 20 MG/50 ML IVPB 20 MG/50 ML MG IVPB SCH (09:39)
[2020-06-01] MEDS: ASPIRIN 81 MG CHEWABLE TABLETS PO SCH (09:39)
[2020-06-01] MEDS: METOPROLOL TARTRATE 5 MG/5 ML VIAL IVPUSH PRN ×2 (09:39→13:00)
[2020-06-01] MEDS: POLYETHYLENE GLYCOL 3350 119 GM BTL PO SCH (09:40)
[2020-06-01] MEDS: DEXMEDETOMIDINE IN 0.9 % NACL 400 MCG/100 ML VIAL IVPB SCH ×2 (09:48→18:47)
[2020-06-01] MEDS: VASOPRESSIN 40 UNITS in SODIUM CHLORIDE 98 ML IVPB SCH ×2 (09:58→14:00)
[2020-06-01] MEDS: DOPAMINE 400 MG/D5W - 400,000 MCG/250 ML INFUS.BAG IVPB SCH (10:10)
[2020-06-01] MEDS ORDERED: METOPROLOL TARTRATE 5 MG/5 ML VIAL IVPUSH ONE (10:19)
[2020-06-01] MEDS ORDERED: PHENYLEPHRINE HCL 10 MG/1 ML SINGLE DOSE VIAL ONE (12:46)
[2020-06-01] MEDS ORDERED: METOPROLOL TARTRATE 5 MG/5 ML VIAL ONE (12:53)
[2020-06-01] MEDS: PHENYLEPHRINE HCL 10,000 MCG in DEXTROSE 5%-WATER - 499 ML IV SCH (13:00)
[2020-06-01] MEDS ORDERED: AMIODARONE IN DEXTROSE,ISO-OSM 360 MG/200 ML BAG IVPB ONE (18:01)
[2020-06-01] MEDS: FENTANYL NS IVPB 500 MCG/100 ML BAG IVPB SCH (21:28)
[2020-06-02] MEDS: AMIODARONE IN DEXTROSE,ISO-OSM 360 MG/200 ML BAG IVPB SCH
[2020-06-02] MEDS: PHENYLEPHRINE HCL 10,000 MCG in DEXTROSE 5%-WATER - 499 ML IV SCH (06:17)
[2020-06-02 06:32] LABS: HEMATOCRIT 23.3 % (32.4-45.2); HEMOGLOBIN 7.8 GM/dL (10.7-15.3); MCH 29.7 pg (25.7-33.7); MCHC 33.6 g/dl (32.0-36.0); MEAN CELL VOLUME 88.2 fl (80-96); MEAN PLT VOLUME 8.6 fl (7.5-11.1); PLATELET COUNT 197 K/MM3 (134-434); RBC 2.64 M/mm3 (3.60-5.2); RDW 15.4 % (11.6-15.6); WHITE BLOOD COUNT 7.7 K/mm3 (4.0-10.0)
[2020-06-02 06:59] LABS: POTASSIUM 4.6 mmol/L (3.5-5.1)
[2020-06-02 07:02] LABS: ALBUMIN 1.9 g/dl (3.4-5.0); CALCIUM 7.9 mg/dL (8.5-10.1)
[2020-06-02 07:06] LABS: CREATININE 0.5 mg/dL (0.55-1.3)
[2020-06-02 07:07] LABS: BILIRUBIN,TOTAL 0.7 mg/dL (0.2-1); TOT PROT 4.5 g/dl (6.4-8.2)
[2020-06-02] MEDS: FAMOTIDINE 20 MG/50 ML IVPB 20 MG/50 ML MG IVPB SCH (09:13)
[2020-06-02] MEDS: ENOXAPARIN NA (PORCINE) 40 MG/0.4 ML DISP.SYRIN SQ SCH ×2 (09:13→22:38)
[2020-06-02] MEDS: ASPIRIN 81 MG CHEWABLE TABLETS PO SCH (09:13)
[2020-06-02] MEDS: POLYETHYLENE GLYCOL 3350 119 GM BTL PO SCH (09:14)
[2020-06-02] MEDS ORDERED: PHENYLEPHRINE NS PREMIX 50,000 MCG/500 ML BAG CVP SCH (11:00)
[2020-06-02] MEDS: DOPAMINE 400 MG/D5W - 400,000 MCG/250 ML INFUS.BAG IVPB SCH (11:44)
[2020-06-02] MEDS: VASOPRESSIN 40 UNITS in SODIUM CHLORIDE 98 ML IVPB SCH (13:54)
[2020-06-02] MEDS: MIDODRINE HCL 5 MG TABLET PO SCH ×2 (13:54→19:00)
[2020-06-02 14:34] LABS: HEMATOCRIT 25.5 % (32.4-45.2); HEMOGLOBIN 8.2 GM/dL (10.7-15.3); MCH 28.4 pg (25.7-33.7); MCHC 32.3 g/dl (32.0-36.0); MEAN CELL VOLUME 87.8 fl (80-96); MEAN PLT VOLUME 8.7 fl (7.5-11.1); PLATELET COUNT 259 K/MM3 (134-434); RDW 15.5 % (11.6-15.6); WHITE BLOOD COUNT 13.6 K/mm3 (4.0-10.0)
[2020-06-02] MEDS ORDERED: MIDAZOLAM HCL 2 MG/2 ML SINGLE DOSE VIAL IVPUSH ONE (14:51)
[2020-06-02 19:03] LABS: BF WBC & OTHER NUCLEATED CELLS 165 /mm3
[2020-06-02 19:09] LABS: BODY FLUID MACROPHAGES 12 %; BODY FLUID MONOCYTE 25 %
[2020-06-02] MEDS: DEXMEDETOMIDINE IN 0.9 % NACL 400 MCG/100 ML VIAL IVPB SCH (21:51)
[2020-06-02] MEDS: FENTANYL NS IVPB 500 MCG/100 ML BAG IVPB SCH (22:38)
[2020-06-03] MEDS: AMIODARONE IN DEXTROSE,ISO-OSM 360 MG/200 ML BAG IVPB SCH
[2020-06-03 05:50] LABS: POTASSIUM 4.6 mmol/L (3.5-5.1)
[2020-06-03 05:51] LABS: CALCIUM 8.6 mg/dL (8.5-10.1)
[2020-06-03 05:52] LABS: BLOOD UREA NITROGEN 19.8 mg/dL (7-18); MAGNESIUM 2.2 mg/dL (1.8-2.4)
[2020-06-03 05:55] LABS: CREATININE 0.5 mg/dL (0.55-1.3); PHOSPHOROUS 3.6 mg/dL (2.5-4.9)
[2020-06-03 05:58] LABS: HEMATOCRIT 26.7 % (32.4-45.2); HEMOGLOBIN 8.9 GM/dL (10.7-15.3); MCH 29.3 pg (25.7-33.7); MCHC 33.2 g/dl (32.0-36.0); MEAN CELL VOLUME 88.1 fl (80-96); MEAN PLT VOLUME 9.2 fl (7.5-11.1); PLATELET COUNT 281 K/MM3 (134-434); RBC 3.03 M/mm3 (3.60-5.2); RDW 15.4 % (11.6-15.6); WHITE BLOOD COUNT 11.5 K/mm3 (4.0-10.0)
[2020-06-03] MEDS ORDERED: VANCOMYCIN 1 GRAM (PRE-DOCKED) 1,000 MG/250 ML BAG IVPB ONE (06:00)
[2020-06-03 06:08] LABS: INR 0.93 (0.83-1.09); PROTHROMBIN TIME (PATIENT) 11.5 SEC (9.7-13.0)
[2020-06-03 06:11] LABS: ACTIVATED PTT 32.5 SECONDS (25.2-36.5)
[2020-06-03] MEDS: DEXMEDETOMIDINE IN 0.9 % NACL 400 MCG/100 ML VIAL IVPB SCH (07:00)
[2020-06-03] MEDS: PHENYLEPHRINE NS PREMIX 50,000 MCG/500 ML BAG CVP SCH (07:00)
[2020-06-03] MEDS ORDERED: LIDOCAINE HCL 1%, 10 MG/ML (20ML VIAL) ONE (07:09)
[2020-06-03] MEDS ORDERED: EPHEDRINE SULFATE/0.9% NACL/PF 50 MG/10 ML SYRINGE NR ONE (07:28)
[2020-06-03] MEDS ORDERED: MIDAZOLAM HCL 2 MG/2 ML SINGLE DOSE VIAL ONE (07:29)
[2020-06-03] MEDS ORDERED: BUPIVACAINE HCL/PF 0.5% (5 MG/ML) 30 ML VIAL IJ ONE (08:15)
[2020-06-03] MEDS ORDERED: LIDOCAINE HCL 1%, 10 MG/ML (20ML VIAL) NR ONE (08:15)
[2020-06-03] MEDS ORDERED: BACITRACIN 50,000 UNITS VIAL TP ONE (08:28)
[2020-06-03] MEDS ORDERED: DOPAMINE 400 MG/D5W - 400,000 MCG/250 ML INFUS.BAG IVPB SCH (10:25)
[2020-06-03] MEDS ORDERED: AMIODARONE IN DEXTROSE,ISO-OSM 360 MG/200 ML BAG IVPB SCH (10:25)
[2020-06-03] MEDS ORDERED: VASOPRESSIN 40 UNITS in SODIUM CHLORIDE 98 ML IVPB SCH (10:25)
[2020-06-03] MEDS ORDERED: PHENYLEPHRINE NS PREMIX 50,000 MCG/500 ML BAG CVP SCH (10:25)
[2020-06-03] MEDS: FAMOTIDINE 20 MG/50 ML IVPB 20 MG/50 ML MG IVPB SCH (11:16)
[2020-06-03] MEDS: MUPIROCIN 2% TOPICAL OINTMENT FOR DECOLONIZATION NS SCH ×2 (12:13→21:41)
[2020-06-03] MEDS: FENTANYL NS IVPB 500 MCG/100 ML BAG IVPB SCH (16:15)
[2020-06-03] MEDS: MIDODRINE HCL 5 MG TABLET PO SCH ×2 (17:58)
[2020-06-03] MEDS: CHLORHEXIDINE GLUCONATE 4% CLEANSER FOR DECOLONIZATION TP SCH (21:41)
[2020-06-04 06:51] LABS: BASO % 0.1 % (0-2.0); HEMATOCRIT 24.6 % (32.4-45.2); HEMOGLOBIN 8.2 GM/dL (10.7-15.3); LYMPH % 2.9 % (8-40); MCHC 33.3 g/dl (32.0-36.0); MEAN CELL VOLUME 87.3 fl (80-96); MEAN PLT VOLUME 9.2 fl (7.5-11.1); MONO % 10.8 % (3.8-10.2); NEUT % 86.2 % (42.8-82.8); PLATELET COUNT 308 K/MM3 (134-434); RBC 2.82 M/mm3 (3.60-5.2); RDW 15.4 % (11.6-15.6); WHITE BLOOD COUNT 8.9 K/mm3 (4.0-10.0)
[2020-06-04 07:11] LABS: POTASSIUM 4.3 mmol/L (3.5-5.1)
[2020-06-04 07:17] LABS: CALCIUM 8.4 mg/dL (8.5-10.1)
[2020-06-04 07:18] LABS: ALBUMIN 1.9 g/dl (3.4-5.0); BLOOD UREA NITROGEN 19.5 mg/dL (7-18); MAGNESIUM 2.1 mg/dL (1.8-2.4)
[2020-06-04 07:19] LABS: CREATININE 0.5 mg/dL (0.55-1.3)
[2020-06-04 07:21] LABS: BILIRUBIN,TOTAL 0.7 mg/dL (0.2-1); PHOSPHOROUS 4.6 mg/dL (2.5-4.9); TOT PROT 4.7 g/dl (6.4-8.2)
[2020-06-04] MEDS ORDERED: DEXTROSE 50%-WATER - 25 GM/50 ML VIAL IVPUSH ONE (08:18)
[2020-06-04] MEDS ORDERED: DEXTROSE 50%-WATER 25 GM/50 ML DISP.SYRIN ONE (08:27)
[2020-06-04] MEDS: ASPIRIN 81 MG CHEWABLE TABLETS PO SCH (09:01)
[2020-06-04] MEDS: FAMOTIDINE 20 MG/50 ML IVPB 20 MG/50 ML MG IVPB SCH (09:01)
[2020-06-04] MEDS: MIDODRINE HCL 5 MG TABLET PO SCH (09:02)
[2020-06-04] MEDS: MUPIROCIN 2% TOPICAL OINTMENT FOR DECOLONIZATION NS SCH ×2 (11:33→22:10)
[2020-06-04] MEDS: METOPROLOL TARTRATE 5 MG/5 ML VIAL IVPUSH PRN ×2 (11:39→20:41)
[2020-06-04] MEDS: DEXMEDETOMIDINE IN 0.9 % NACL 400 MCG/100 ML VIAL IVPB SCH (11:40)
[2020-06-04] MEDS: FENTANYL NS IVPB 500 MCG/100 ML BAG IVPB SCH (11:40)
[2020-06-04] MEDS ORDERED: METOPROLOL TARTRATE 5 MG/5 ML VIAL IVPUSH ONE (12:57)
[2020-06-04] MEDS: POLYETHYLENE GLYCOL 3350 119 GM BTL PO SCH (13:47)
[2020-06-04] MEDS ORDERED: MIDODRINE HCL 5 MG TABLET PO SCH (14:00)
[2020-06-04 16:08] LABS: BODY FLUID ALBUMIN 1.1 g/dL (Not Estab.)
[2020-06-04] MEDS ORDERED: amLODIPine BESYLATE 10 MG TABLET (FP) PO ONE (17:06)
[2020-06-04] MEDS ORDERED: ENALAPRILAT DIHYDRATE 2.5 MG/2 ML VIAL IVPB ONE (17:07)
[2020-06-04] MEDS: PHENYLEPHRINE NS PREMIX 50,000 MCG/500 ML BAG CVP SCH (17:18)
[2020-06-04] MEDS ORDERED: AMIODARONE HCL 200 MG TABLET PO SCH (22:00)
[2020-06-04] MEDS: APIXABAN 2.5 MG TABLET PO SCH (22:10)
[2020-06-04] MEDS: CHLORHEXIDINE GLUCONATE 4% CLEANSER FOR DECOLONIZATION TP SCH (22:10)
[2020-06-05] MEDS: METOPROLOL TARTRATE 5 MG/5 ML VIAL IVPUSH PRN ×2 (02:40→09:18)
[2020-06-05 06:58] LABS: HEMATOCRIT 27.6 % (32.4-45.2); HEMOGLOBIN 9.1 GM/dL (10.7-15.3); MCH 29.4 pg (25.7-33.7); MEAN PLT VOLUME 8.7 fl (7.5-11.1); PLATELET COUNT 435 K/MM3 (134-434); RDW 15.3 % (11.6-15.6); WHITE BLOOD COUNT 8.8 K/mm3 (4.0-10.0)
[2020-06-05 07:24] LABS: POTASSIUM 4.6 mmol/L (3.5-5.1)
[2020-06-05 07:31] LABS: BLOOD UREA NITROGEN 22.9 mg/dL (7-18)
[2020-06-05 07:34] LABS: CREATININE 0.6 mg/dL (0.55-1.3)
[2020-06-05] MEDS ORDERED: METOPROLOL TARTRATE 25 MG TABLET (FP) PO SCH ×3 (08:00→10:00)
[2020-06-05] MEDS: FAMOTIDINE 20 MG/50 ML IVPB 20 MG/50 ML MG IVPB SCH (09:04)
[2020-06-05] MEDS: ASPIRIN 81 MG CHEWABLE TABLETS PO SCH (09:04)
[2020-06-05] MEDS: APIXABAN 2.5 MG TABLET PO SCH ×2 (09:04→22:12)
[2020-06-05] MEDS: MUPIROCIN 2% TOPICAL OINTMENT FOR DECOLONIZATION NS SCH ×2 (09:05→22:12)
[2020-06-05] MEDS ORDERED: METOPROLOL TARTRATE 25 MG TABLET (FP) PO ONE (15:00)
[2020-06-05] MEDS: LOSARTAN POTASSIUM 25 MG TABLET PO SCH (15:19)
[2020-06-05] MEDS ORDERED: SODIUM CHLORIDE 1,000 ML IV SCH (15:30)
[2020-06-05] MEDS: POLYETHYLENE GLYCOL 3350 119 GM BTL PO SCH (15:33)
[2020-06-05] MEDS: CHLORHEXIDINE GLUCONATE 4% CLEANSER FOR DECOLONIZATION TP SCH (22:12)
[2020-06-05] MEDS: METOPROLOL TARTRATE 25 MG TABLET (FP) PO SCH (22:12)
[2020-06-06 07:13] LABS: HEMATOCRIT 28.1 % (32.4-45.2); HEMOGLOBIN 9.2 GM/dL (10.7-15.3); MCH 29.5 pg (25.7-33.7); MCHC 32.9 g/dl (32.0-36.0); MEAN CELL VOLUME 89.7 fl (80-96); MEAN PLT VOLUME 8.3 fl (7.5-11.1); PLATELET COUNT 503 K/MM3 (134-434); RBC 3.14 M/mm3 (3.60-5.2); RDW 15.3 % (11.6-15.6); WHITE BLOOD COUNT 7.5 K/mm3 (4.0-10.0)
[2020-06-06 07:30] LABS: POTASSIUM 4.8 mmol/L (3.5-5.1)
[2020-06-06 07:35] LABS: CALCIUM 9.4 mg/dL (8.5-10.1)
[2020-06-06 07:38] LABS: CREATININE 0.6 mg/dL (0.55-1.3)
[2020-06-06 07:40] LABS: BILIRUBIN,TOTAL 0.5 mg/dL (0.2-1); TOT PROT 5.5 g/dl (6.4-8.2)
[2020-06-06 07:43] LABS: ALBUMIN 2.4 g/dl (3.4-5.0)
[2020-06-06] MEDS: APIXABAN 2.5 MG TABLET PO SCH ×2 (10:06→21:52)
[2020-06-06] MEDS: LOSARTAN POTASSIUM 25 MG TABLET PO SCH (10:06)
[2020-06-06] MEDS: METOPROLOL TARTRATE 25 MG TABLET (FP) PO SCH (10:06)
[2020-06-06] MEDS: MUPIROCIN 2% TOPICAL OINTMENT FOR DECOLONIZATION NS SCH ×2 (10:07→21:52)
[2020-06-06] MEDS: FAMOTIDINE 20 MG/50 ML IVPB 20 MG/50 ML MG IVPB SCH (10:07)
[2020-06-06] MEDS ORDERED: FUROSEMIDE 40 MG/4 ML INJECTABLE VIAL IVPUSH ONE (11:45)
[2020-06-06] MEDS: POLYETHYLENE GLYCOL 3350 119 GM BTL PO SCH (13:18)
[2020-06-06] MEDS ORDERED: SOTALOL HCL 80 MG TABLET (FP) PO SCH (14:45)
[2020-06-06] MEDS ORDERED: dilTIAZem HCL 50 MG/10 ML - 10 ML VIAL IVPUSH ONE (17:04)
[2020-06-06] MEDS ORDERED: SODIUM CHLORIDE 0.9% 500 ML INFUS.BAG IV ONE (17:57)
[2020-06-06] MEDS ORDERED: AMIODARONE IN DEXTROSE,ISO-OSM 150 MG/100 ML BAG IVPB ONE (18:21)
[2020-06-06] MEDS ORDERED: AMIODARONE IN DEXTROSE,ISO-OSM 360 MG/200 ML BAG IVPB ONE (18:21)
[2020-06-06] MEDS: CHLORHEXIDINE GLUCONATE 4% CLEANSER FOR DECOLONIZATION TP SCH (21:52)
[2020-06-07] MEDS: AMIODARONE IN DEXTROSE,ISO-OSM 360 MG/200 ML BAG IVPB SCH ×2 (01:31→10:06)
[2020-06-07 06:39] LABS: HEMATOCRIT 31.9 % (32.4-45.2); HEMOGLOBIN 10.3 GM/dL (10.7-15.3); MCH 28.8 pg (25.7-33.7); MCHC 32.2 g/dl (32.0-36.0); MEAN CELL VOLUME 89.5 fl (80-96); MEAN PLT VOLUME 8.2 fl (7.5-11.1); PLATELET COUNT 606 K/MM3 (134-434); RBC 3.56 M/mm3 (3.60-5.2); RDW 15.8 % (11.6-15.6)
[2020-06-07 07:04] LABS: POTASSIUM 3.9 mmol/L (3.5-5.1)
[2020-06-07 07:08] LABS: ALBUMIN 2.4 g/dl (3.4-5.0); BLOOD UREA NITROGEN 33.3 mg/dL (7-18); CALCIUM 9.7 mg/dL (8.5-10.1)
[2020-06-07 07:09] LABS: MAGNESIUM 2.3 mg/dL (1.8-2.4)
[2020-06-07 07:12] LABS: CREATININE 0.6 mg/dL (0.55-1.3)
[2020-06-07 07:13] LABS: BILIRUBIN,TOTAL 0.5 mg/dL (0.2-1); TOT PROT 5.7 g/dl (6.4-8.2)
[2020-06-07] MEDS ORDERED: PT OWN MED DRAWER 7, Y5N ONE (09:31)
[2020-06-07] MEDS: FAMOTIDINE 20 MG/50 ML IVPB 20 MG/50 ML MG IVPB SCH (09:41)
[2020-06-07] MEDS: APIXABAN 2.5 MG TABLET PO SCH ×3 (09:43→21:22)
[2020-06-07] MEDS: LOSARTAN POTASSIUM 25 MG TABLET PO SCH ×2 (09:43→10:00)
[2020-06-07] MEDS: POLYETHYLENE GLYCOL 3350 119 GM BTL PO SCH (09:43)
[2020-06-07] MEDS: MUPIROCIN 2% TOPICAL OINTMENT FOR DECOLONIZATION NS SCH ×2 (09:43→21:22)
[2020-06-07] MEDS: FUROSEMIDE 40 MG/4 ML INJECTABLE VIAL IVPUSH SCH (12:33)
[2020-06-07] MEDS: AMINO ACIDS 4.25%/D5W 1,000 ML IV SCH (14:30)
[2020-06-07 15:55] VITALS: BMI 19.7
[2020-06-07] MEDS: CHLORHEXIDINE GLUCONATE 4% CLEANSER FOR DECOLONIZATION TP SCH (21:22)
[2020-06-08 07:16] LABS: HEMATOCRIT 33.8 % (32.4-45.2); HEMOGLOBIN 10.8 GM/dL (10.7-15.3); MCH 28.7 pg (25.7-33.7); MCHC 31.9 g/dl (32.0-36.0); MEAN CELL VOLUME 90.1 fl (80-96); MEAN PLT VOLUME 8.1 fl (7.5-11.1); PLATELET COUNT 482 K/MM3 (134-434); RBC 3.75 M/mm3 (3.60-5.2); RDW 15.6 % (11.6-15.6); WHITE BLOOD COUNT 12.6 K/mm3 (4.0-10.0)
[2020-06-08 07:46] LABS: POTASSIUM 3.6 mmol/L (3.5-5.1)
[2020-06-08 07:48] LABS: ALBUMIN 2.2 g/dl (3.4-5.0); BLOOD UREA NITROGEN 35.8 mg/dL (7-18); CALCIUM 9.5 mg/dL (8.5-10.1)
[2020-06-08 07:49] LABS: MAGNESIUM 2.1 mg/dL (1.8-2.4)
[2020-06-08 07:51] LABS: CREATININE 0.5 mg/dL (0.55-1.3)
[2020-06-08 07:52] LABS: PHOSPHOROUS 2.8 mg/dL (2.5-4.9)
[2020-06-08 07:53] LABS: BILIRUBIN,TOTAL 0.3 mg/dL (0.2-1); TOT PROT 5.5 g/dl (6.4-8.2)
[2020-06-08] MEDS ORDERED: PT OWN MED DRAWER 7, Y5N ONE (09:38)
[2020-06-08] MEDS: FAMOTIDINE 20 MG/50 ML IVPB 20 MG/50 ML MG IVPB SCH (09:40)
[2020-06-08] MEDS: POLYETHYLENE GLYCOL 3350 119 GM BTL PO SCH (09:41)
[2020-06-08] MEDS: FUROSEMIDE 40 MG/4 ML INJECTABLE VIAL IVPUSH SCH (09:41)
[2020-06-08] MEDS: LOSARTAN POTASSIUM 25 MG TABLET PO SCH (09:41)
[2020-06-08] MEDS: APIXABAN 2.5 MG TABLET PO SCH ×2 (09:41→21:36)
[2020-06-08] MEDS: AMINO ACIDS 4.25%/D5W 1,000 ML IV SCH (16:53)
[2020-06-08] MEDS: CHLORHEXIDINE GLUCONATE 4% CLEANSER FOR DECOLONIZATION TP SCH (21:21)
[2020-06-08] MEDS: AMIODARONE IN DEXTROSE,ISO-OSM 360 MG/200 ML BAG IVPB SCH ×2 (21:21)
[2020-06-09 06:47] LABS: HEMATOCRIT 31.3 % (32.4-45.2); MCH 28.5 pg (25.7-33.7); MCHC 31.9 g/dl (32.0-36.0); MEAN CELL VOLUME 89.6 fl (80-96); MEAN PLT VOLUME 8.5 fl (7.5-11.1); PLATELET COUNT 474 K/MM3 (134-434); RBC 3.49 M/mm3 (3.60-5.2); RDW 15.3 % (11.6-15.6); WHITE BLOOD COUNT 14.8 K/mm3 (4.0-10.0)
[2020-06-09 07:31] LABS: BLOOD UREA NITROGEN 40.1 mg/dL (7-18); CALCIUM 9.6 mg/dL (8.5-10.1)
[2020-06-09 07:32] LABS: CREATININE 0.6 mg/dL (0.55-1.3); PHOSPHOROUS 2.2 mg/dL (2.5-4.9)
[2020-06-09 08:35] LABS: ARTERIAL BLD GAS O2 SATURATION 94.4 mmHg (95-98); ARTERIAL BLOOD GAS BASE EXCESS 15.4 mmol/L (-2-2); ARTERIAL BLOOD GAS PO2 76.1 mmHg (80-100); ARTERIAL BLOOD GAS pH 7.386 (7.350-7.450)
[2020-06-09 08:37] LABS: ALLENS TEST POSITIVE
[2020-06-09] MEDS: APIXABAN 2.5 MG TABLET PO SCH (09:23)
[2020-06-09] MEDS: FUROSEMIDE 40 MG/4 ML INJECTABLE VIAL IVPUSH SCH (09:23)
[2020-06-09] MEDS: LOSARTAN POTASSIUM 25 MG TABLET PO SCH (09:23)
[2020-06-09] MEDS: POLYETHYLENE GLYCOL 3350 119 GM BTL PO SCH (09:24)
[2020-06-09] MEDS: FAMOTIDINE 20 MG/50 ML IVPB 20 MG/50 ML MG IVPB SCH (09:25)
[2020-06-09] MEDS: AMIODARONE IN DEXTROSE,ISO-OSM 360 MG/200 ML BAG IVPB SCH (09:26)
[2020-06-09] MEDS ORDERED: PT OWN MED DRAWER 7, Y5N ONE (14:37)
[2020-06-09] MEDS ORDERED: LIDOCAINE HCL 1%, 10 MG/ML (20ML VIAL) ONE (14:43)
[2020-06-09] MEDS: AMINO ACIDS 4.25%/D5W 1,000 ML IV SCH (16:12)
[2020-06-09] MEDS: ALBUMIN HUMAN 25% 100 ML VIAL IVPB SCH ×4 (18:16→18:40)
[2020-06-09 21:46] VITALS: BP 121/35; PULSE 66; TEMP 98.2
== END 2020-06-09 23:35 | disposition expired | DRG 242 ==
LOC: FER 19:44 → FM/S 21:39 → UNDOADMIN 05-26 00:02 → FM/S 05-26 00:02 → JICU 05-28 13:54
PROVIDERS: ADMIT Internal Medicine
PROC: 05H333Z Insertion of Infusion Device into Right Innominate Vein, Percutaneous Approach (ICD-10-PCS; 2020-05-28)
PROC: 5A1955Z Respiratory Ventilation, Greater than 96 Consecutive Hours (ICD-10-PCS; 2020-05-28)
PROC: 0BH17EZ Insertion of Endotracheal Airway into Trachea, Via Natural or Artificial Opening (ICD-10-PCS; 2020-05-28)
PROC: 0DH67UZ Insertion of Feeding Device into Stomach, Via Natural or Artificial Opening (ICD-10-PCS; 2020-05-28)
PROC: 3E0G76Z Introduction of Nutritional Substance into Upper GI, Via Natural or Artificial Opening (ICD-10-PCS; 2020-05-28)
PROC: B54MZZA Ultrasonography of Right Upper Extremity Veins, Guidance (ICD-10-PCS; 2020-05-28)
PROC: 0W993ZX Drainage of Right Pleural Cavity, Percutaneous Approach, Diagnostic (ICD-10-PCS; 2020-06-02)
PROC: 02HK3JZ Insertion of Pacemaker Lead into Right Ventricle, Percutaneous Approach (ICD-10-PCS; 2020-06-03)
PROC: 02H63JZ Insertion of Pacemaker Lead into Right Atrium, Percutaneous Approach (ICD-10-PCS; 2020-06-03)
PROC: 0JH606Z Insertion of Pacemaker, Dual Chamber into Chest Subcutaneous Tissue and Fascia, Open Approach (ICD-10-PCS; principal; 2020-06-03 07:30)
PROC: 0W9930Z Drainage of Right Pleural Cavity with Drainage Device, Percutaneous Approach (ICD-10-PCS; 2020-06-09)
DX: I49.5 Sick sinus syndrome (principal); J96.01 Acute respiratory failure with hypoxia; I50.33 Acute on chronic diastolic (congestive) heart failure; E43 Unspecified severe protein-calorie malnutrition; E87.1 Hypo-osmolality and hyponatremia; H33.20 Serous retinal detachment, unspecified eye; I24.8 Other forms of acute ischemic heart disease; R64 Cachexia; Z68.1 Body mass index [BMI] 19.9 or less, adult; J90 Pleural effusion, not elsewhere classified; D64.9 Anemia, unspecified; E86.0 Dehydration; Z85.3 Personal history of malignant neoplasm of breast; Z85.038 Personal history of other malignant neoplasm of large intestine; Z20.822 Contact with and (suspected) exposure to COVID-19; I48.0 Paroxysmal atrial fibrillation; I27.20 Pulmonary hypertension, unspecified; E87.5 Hyperkalemia; E87.6 Hypokalemia; I46.9 Cardiac arrest, cause unspecified
CPT/HCPCS: 31500; 36415; 36600; 70450-TC; 71045-TC-FY; 71250-TC; 73030-TC-RT-FY; 76000-TC-FY; 80048; 80053; 80061; 81003; 81015; 82042; 82378; 82550; 82553; 82803; 82945; 82962; 83036; 83605; 83615; 83735; 83880; 83986; 84100; 84443; 84484; 85025; 85027; 85610; 85730; 86850; 86870; 86900; 86901; 86902; 87040; 87070; 87075; 87086; 87205; 87804; 87899; 93005; 93010; 93306-TC; 93880-TC; 94002; 94010; 94660; 99285-25; C9803; J0131; J0282; U0003